=== PATIENT | male | born 1995 | race Caucasian/White ===

== ENCOUNTER 2023-07-31 10:55 | Emergency (ER) | payer MEDICAID ==
[~2023-07-31] VITALS: Ht 177.8 cm; Wt 73.0 kg
[2023-07-31 10:59] VITALS: TEMP 98.7; O2SAT 96
[2023-07-31 12:01] LABS: BASOPHILS % 0.6 % (0.0-2.0); EOSINOPHILS % 0.6 % (0.0-5.0); HEMATOCRIT. 42.8 % (42.0-52.0); HEMOGLOBIN. 13.6 g/dL (14.0-18.0); LYMPHOCYTES % 36.5 % (20.0-50.0); MEAN CORPUSCULAR HEMOGLOBIN 30.1 pg (28.0-32.0); MEAN CORPUSCULAR HGB CONC 31.8 g/dL (31.0-37.0); MEAN CORPUSCULAR VOLUME 94.8 fL (80.0-94.0); MONOCYTES % 7.2 % (2.0-8.0); NEUTROPHILS % 55.1 % (40.0-76.0); PLATELET 337 x1000/uL (130-400); RED BLOOD CELL COUNT 4.52 mill/uL (4.7-6.1); RED CELL DISTRIBUTION WIDTH 14.1 % (11.6-14.6); WHITE BLOOD COUNT 13.7 x1000/uL (4.5-11.0)
[2023-07-31] MEDS: LORAZEPAM 2MG/ML INJ IV ONE (12:06)
[2023-07-31] MEDS: LEVETIRACETAM 1000MG PREMIX 100 ML IV ONE (12:07)
[2023-07-31 12:15] LABS: ALANINE AMINOTRANSFERASE 16 IU/L (10-49); ALBUMIN 5.3 g/dL (3.2-4.8); ASPARTATE AMINOTRANSFERASE 30 IU/L (<34); BILIRUBIN TOTAL 0.5 mg/dL (0.1-1.0); CALCIUM 9.8 mg/dL (8.7-10.4); CARBON DIOXIDE 13 mEq/L (21-32); CHLORIDE 107 mEq/L (98-107); GLUCOSE 134 mg/dL (70-105); POTASSIUM 3.5 mEq/L (3.5-5.1); PROTEIN TOTAL 8.7 g/dL (6.0-8.3); SODIUM 140 mEq/L (136-145); UREA NITROGEN BLOOD 11 mg/dL (9-23)
[2023-07-31 12:24] LABS: ETHANOL BLOOD < 10 mg/dL (<10)
[2023-07-31] MEDS ORDERED: LORAZEPAM 4MG/ML INJ IV PRN (14:15)
[2023-07-31] MEDS ORDERED: DOCUSATE SODIUM 100MG CAPSULE PO PRN (14:15)
[2023-07-31] MEDS ORDERED: IPRATROPIUM/ALBUTEROL 0.5-3(2.5)MG/3ML NEB HHN PRN (14:15)
[2023-07-31] MEDS ORDERED: ONDANSETRON HCL 4MG/2ML INJ IV PRN (14:15)
[2023-07-31] MEDS ORDERED: MAGNESIUM/ALUMINUM HYDROXIDE/SIMETHICONE 30ML UDC PO PRN (14:15)
[2023-07-31] MEDS ORDERED: GUAIFENESIN 200MG/10ML SUGAR FREE UDC PO PRN (14:15)
[2023-07-31] MEDS ORDERED: ACETAMINOPHEN 325MG TABLET PO PRN ×2 (14:15)
[2023-07-31] MEDS ORDERED: CLONIDINE 0.1MG TABLET PO PRN (14:15)
[2023-07-31] MEDS: SODIUM CHLORIDE 0.9% 1,000 ML IV SCH (14:42)
[2023-07-31 16:00] VITALS: BP 100/58; PULSE 62; RESP 14
[2023-07-31] MEDS ORDERED: LEVETIRACETAM 500 MG IV SCH (21:00)
== END 2023-07-31 17:00 | disposition left against medical advice (07) ==
LOC: ER 10:55 → EDBEDREQ 13:14 → EDBEDREQTM 13:14 → ER 17:00 → CANBEDREQ 20:16
DX: R56.9 Unspecified convulsions (principal)
CPT/HCPCS: 80053; 80320; 85025; 36415; 96361; 96365; 96375; 99284; J1953; J2060; Z7610; G0480

== ENCOUNTER 2023-08-21 01:44 | Emergency (ER) | payer MEDICAID ==
[~2023-08-21] VITALS: Ht 177.8 cm; Wt 75.0 kg
[2023-08-21 01:46] VITALS: O2SAT 99
[2023-08-21 03:11] LABS: HEMATOCRIT. 36.5 % (42.0-52.0); HEMOGLOBIN. 12.2 g/dL (14.0-18.0); MEAN CORPUSCULAR HEMOGLOBIN 29.6 pg (28.0-32.0); MEAN CORPUSCULAR HGB CONC 33.4 g/dL (31.0-37.0); MEAN CORPUSCULAR VOLUME 88.5 fL (80.0-94.0); MEAN PLATELET VOLUME 8.2 fl (7.4-10.4); PLATELET 286 x1000/uL (130-400); RED BLOOD CELL COUNT 4.12 mill/uL (4.7-6.1); WHITE BLOOD COUNT 20.8 x1000/uL (4.5-11.0)
[2023-08-21] MEDS: LEVETIRACETAM 1000MG PREMIX 100 ML IV ONE (03:11)
[2023-08-21] MEDS: SODIUM CHLORIDE 0.9% 1,000 ML IV ONE ×2 (03:12→05:04)
[2023-08-21 03:26] LABS: ALANINE AMINOTRANSFERASE 17 IU/L (10-49); ASPARTATE AMINOTRANSFERASE 38 IU/L (<34); BILIRUBIN TOTAL 0.4 mg/dL (0.1-1.0); CALCIUM 9.2 mg/dL (8.7-10.4); CARBON DIOXIDE 23 mEq/L (21-32); CHLORIDE 102 mEq/L (98-107); GLUCOSE 151 mg/dL (70-105); POTASSIUM 3.9 mEq/L (3.5-5.1); PROTEIN TOTAL 7.5 g/dL (6.0-8.3); SODIUM 136 mEq/L (136-145); UREA NITROGEN BLOOD 13 mg/dL (9-23)
[2023-08-21 03:59] LABS: CREATININE 1.7 mg/dL (0.6-1.3)
[2023-08-21 04:24] LABS: DIFFERENTIAL COMMENT 1
[2023-08-21] MEDS ORDERED: KEPP500 MT (05:11)
[2023-08-21 06:05] VITALS: TEMP 97.5
[2023-08-21 07:47] VITALS: BP 104/59; PULSE 73; RESP 20
[2023-08-21 08:11] LABS: PLATELET ESTIMATE NORMAL
== END 2023-08-21 08:19 | disposition home or self-care (01) ==
LOC: ER 01:44
DX: R56.9 Unspecified convulsions (principal); Z91.148 Patient's other noncompliance with medication regimen for other reason
CPT/HCPCS: 80053; 85025; 36415; 70450; 96361; 96365; 96366; 99291; J1953; J7030; Z7610 ×4; 99285

== ENCOUNTER 2023-10-28 14:26 | Emergency (ER) | payer OTHER ==
[~2023-10-28] VITALS: Ht 170.2 cm; Wt 70.0 kg
[~2023-10-28 14:26] MED LIST: KEPP500 MT
[2023-10-28 14:31] VITALS: O2SAT 100
[2023-10-28 15:00] LABS: BASOPHILS % 1.1 % (0.0-2.0); EOSINOPHILS % 0.7 % (0.0-5.0); HEMATOCRIT. 39.5 % (42.0-52.0); HEMOGLOBIN. 13.4 g/dL (14.0-18.0); LYMPHOCYTES % 29.4 % (20.0-50.0); MEAN CORPUSCULAR HEMOGLOBIN 30.2 pg (28.0-32.0); MEAN CORPUSCULAR VOLUME 88.8 fL (80.0-94.0); MEAN PLATELET VOLUME 7.8 fl (7.4-10.4); MONOCYTES % 7.6 % (2.0-8.0); NEUTROPHILS % 61.2 % (40.0-76.0); PLATELET 275 x1000/uL (130-400); RED BLOOD CELL COUNT 4.44 mill/uL (4.7-6.1); RED CELL DISTRIBUTION WIDTH 14.5 % (11.6-14.6); WHITE BLOOD COUNT 6.9 x1000/uL (4.5-11.0)
[2023-10-28] MEDS: LORAZEPAM 2MG/ML INJ IV ONE ×2 (15:04)
[2023-10-28] MEDS: LEVETIRACETAM 500MG PREMIX 100 ML IV ONE ×2 (15:04)
[2023-10-28 15:08] LABS: CHLORIDE 105 mEq/L (98-107); SODIUM 139 mEq/L (136-145)
[2023-10-28 15:09] LABS: CALCIUM 10.6 mg/dL (8.7-10.4); CARBON DIOXIDE 24 mEq/L (21-32)
[2023-10-28 15:14] LABS: CREATININE 0.9 mg/dL (0.6-1.3); GLUCOSE 101 mg/dL (70-105); UREA NITROGEN BLOOD 10 mg/dL (9-23)
[2023-10-28 15:15] LABS: TROPONIN I HIGH SENSITIVITY 7 ng/L (3.0-53)
[2023-10-28] MEDS ORDERED: KEPP500 MT (18:58)
[2023-10-28 19:00] VITALS: BP 108/60; PULSE 82; RESP 16; TEMP 98.1
== END 2023-10-28 19:25 | disposition home or self-care (01) ==
LOC: ER 14:26
DX: G40.802 Other epilepsy, not intractable, without status epilepticus (principal); F10.90 Alcohol use, unspecified, uncomplicated; Y90.9 Presence of alcohol in blood, level not specified
CPT/HCPCS: 36415; 71045; 80048; 83880; 84484; 85025; 93005; 96365; 96375; 99285; J1953; J2060

== ENCOUNTER 2023-12-07 12:40 | Emergency (ER) | payer OTHER ==
[~2023-12-07] VITALS: Ht 172.7 cm; Wt 70.0 kg
[2023-12-07 12:43] VITALS: O2SAT 99
[2023-12-07] MEDS: ACETAMINOPHEN 325MG TABLET PO NR (14:08)
[2023-12-07 14:10] VITALS: BP 128/77; PULSE 82; RESP 16; TEMP 98.8
== END 2023-12-07 14:23 | disposition home or self-care (01) ==
LOC: ER 12:40
DX: R56.9 Unspecified convulsions (principal); F10.20 Alcohol dependence, uncomplicated; Y90.9 Presence of alcohol in blood, level not specified
CPT/HCPCS: 99283; 99284